=== PATIENT | male | born 1985 | race American Indian/Alaskan Native ===

== ENCOUNTER 2016-08-18 17:46 | Emergency (ER) | payer SELFPAY | END 2016-08-18 19:50 | disposition left against medical advice (07) | LOC: ED 17:46 | DX: R53.1 Weakness (principal); Z53.21 Procedure and treatment not carried out due to patient leaving prior to being seen by health care provider ==

== ENCOUNTER 2016-08-31 09:53 | Emergency (ER) | payer SELFPAY ==
[2016-08-31 10:28] LABS: Hemoglobin 15.8 gm/dl (11.8-15.2); Mean Corpuscular HGB Conc 34 % (32-34); Mean Corpuscular Hemoglobin 28 pg (28-32); Mean Corpuscular Volume 82 fl (84-94); Platelet Count 170 K/mm3 (140-440); Red Blood Count 5.75 M/mm3 (3.65-5.03); Red Cell Distribution Width 14.9 % (13.2-15.2); White Blood Count 2.4 K/mm3 (4.5-11.0)
[2016-08-31 10:47] LABS: Alanine Aminotransferase 173 units/L (7-56); Albumin 4.7 g/dL (3.9-5); Albumin/Globulin Ratio 1.6 %; Alkaline Phosphatase 107 units/L (35-129); Anion Gap 18 mmol/L; Blood Urea Nitrogen 6 mg/dL (9-20); Calcium 9.3 mg/dL (8.4-10.2); Carbon Dioxide 29 mmol/L (22-30); Chloride 95.4 mmol/L (98-107); Glucose 104 mg/dL (75-100); Potassium 3.6 mmol/L (3.6-5.0); Sodium 139 mmol/L (137-145); Total Protein 7.7 g/dL (6.3-8.2)
[2016-08-31 11:35] LABS: Blastocytes % (Manual) 0 %; Large Platelets Few
[2016-08-31 11:36] LABS: Diff Status Complete; RBC Morphology Normal
--- NOTE | 2016-08-31 18:49 | Emergency Department Report ---
Chief Complaint: Recheck/Abnormal Lab/Rx Stated Complaint: THYROID Time Seen by Provider: 08/31/16 18:45 - HPI History of Present Illness: PT c/o a year of fatigue and LUQ pain. PT states he was seen at urgent care recently and sent to ED for abnormal labs. - ROS Review of Systems: + luq abd pain, intermittent + fatigue + rash + itching - sore throat - Exam Vital Signs: Vital Signs 08/31/16 09:56 Temperature 98.2 F Pulse Rate 95 H Respiratory 18 Rate Blood Pressure 153/111 O2 Sat by Pulse 100 Oximetry Physical Exam: thin male, non toxic. pt with soft abd. pt c/o LUQ pain, but no pain with palpation PT has eczema like rash to L AC MSE screening note: Focused history and physical exam performed. Due to findings the following was ordered: addition labs and gallbladder us ordered. pt encouraged to stay in ed. ED Medical Decision Making - Lab Data Result diagrams: 08/31/16 10:10 08/31/16 10:10 ED Disposition for MSE Condition: Stable Referrals: PRIMARY CARE [Primary Care Provider] - 3-5 Days
[2016-08-31 19:38] LABS: Amylase 502 units/L (27-131); Creatine Kinase 293 units/L (55-170); Lipase 21 units/L (13-60)
[2016-08-31 20:28] LABS: Bilirubin,Urine NEG (Negative); Blood,Urine NEG (Negative); Ketones,Urine NEG (Negative); Leukocyte Esterase,Urine NEG (Negative); Mucus,Urine FEW /HPF; Nitrite,Urine NEG (Negative); Protein,Urine <15 mg/dL mg/dL (Negative); WBC,Urine < 1.0 /HPF (0.0-6.0)
--- NOTE | 2016-08-31 20:29 | Ultrasound Report ---
FINAL REPORT PROCEDURE: US ABDOMEN LIMITED TECHNIQUE: Real-time sonography in multiple planes of the gallbladder fossa and CBD with imaging of the adjacent liver, pancreas, and right kidney was performed with image documentation. CPT 24567 HISTORY: pain, elevated lfts COMPARISON: No prior studies are available for comparison. FINDINGS: Liver: Diffuse increased echogenicity may be related to fatty infiltration. Gallbladder: Fluid filled. No gallstones, wall thickening, pericholecystic fluid, or sonographic Hensley's sign . Intrahepatic bile ducts: Normal . Extrahepatic bile ducts: Common bile duct measures 4 millimeters in caliber. Pancreas: Not fully visualized. Right kidney: Normal echotexture. No focal renal mass, calculus, or hydronephrosis. Other: No free fluid. IMPRESSION: Fatty infiltration of the liver. No sonographic evidence of cholelithiasis or acute cholecystitis
--- NOTE | 2016-08-31 21:30 | Emergency Department Report ---
ED Recheck HPI - General Chief Complaint: Recheck/Abnormal Lab/Rx Stated Complaint: THYROID Time Seen by Provider: 08/31/16 18:45 Source: patient Mode of arrival: Ambulatory Limitations: No Limitations - History of Present Illness Initial Comments: 31M PMH none sent by PMD today for "cancer workup" as per PMD note and results of hypokalemia (3.1) and mildly elevated AST/ALT liver function panel (in 200s) . Pt states he was advised by his PMD to present to the ED for evaluation, presumptively because of these abnormalities. Unclear why triage note states "thyroid" complaint. Pt is AAAOx3, accompanied by mother and father. He states that for approximately 1 year he has noticed weight loss and diffuse body aches. pt states he sometimes experiences abdominal pains. Also states that over the last year he has become progressively more fatigued. Denies any current chest pain, shortness of breath, nausea, vomiting, states he is moving his bowels and urinating on daily basis without difficulty. States he has had weight loss of about 20-30 lbs over the course of 1 year. Complaint: abnormal lab Onset/Timin -: year(s) Returns Today for: CBOAL Description of Abnormal Result: K+: 3.1 on 08/27/13 AST/ALT 200s 08/27/16 plts 110 08/27/16 Symptoms Since Prior Visit: no new symptoms Context: called for abnorm lab res - Related Data Previous Rx's Medication Instructions Recorded Last Taken Type amLODIPine [Norvasc] 5 mg PO DAILY #30 tab 08/31/16 Unknown Rx Allergies Allergy/AdvReac Type Severity Reaction Status Date / Time No Known Allergies Allergy Verified 08/31/16 10:08 ED Review of Systems ROS: Stated complaint: THYROID Other details as noted in HPI Constitutional: malaise (1 year) Eyes: denies: eye pain, eye discharge, vision change ENT: denies: ear pain, throat pain Respiratory: denies: cough, shortness of breath, wheezing Cardiovascular: denies: chest pain, palpitations Endocrine: no symptoms reported, unexplained weight loss (weight loss x 1year approximately 20 lbs) Gastrointestinal: other. denies: abdominal pain, nausea, diarrhea Genitourinary: denies: urgency, dysuria Musculoskeletal: denies: back pain, joint swelling, arthralgia Skin: denies: rash, lesions Neurological: denies: headache, weakness, paresthesias Psychiatric: denies: anxiety, depression Hematological/Lymphatic: denies: easy bleeding, easy bruising ED Past Medical Hx - Past Medical History Hx Asthma: Yes - Surgical History Additional Surgical History: scoliosis repair - Social History Smoking Status: Current Every Day Smoker Substance Use Type: Alcohol - Medications Home Medications: Home Medications Medication Instructions Recorded Confirmed Last Taken Type amLODIPine [Norvasc] 5 mg PO DAILY #30 tab 08/31/16 Unknown Rx ED Physical Exam - General Limitations: No Limitations General appearance: alert, in no apparent distress - Head Head exam: Present: atraumatic, normocephalic - Eye Eye exam: Present: normal appearance, PERRL, EOMI - ENT ENT exam: Present: mucous membranes moist - Neck Neck exam: Present: normal inspection - Respiratory Respiratory exam: Present: normal lung sounds bilaterally. Absent: respiratory distress - Cardiovascular Cardiovascular Exam: Present: regular rate, normal rhythm. Absent: systolic murmur, diastolic murmur, rubs, gallop - GI/Abdominal GI/Abdominal exam: Present: soft, normal bowel sounds - Rectal Rectal exam: Present: deferred - Extremities Exam Extremities exam: Present: normal inspection - Back Exam Back exam: Present: normal inspection - Neurological Exam Neurological exam: Present: alert, oriented X3, CN II-XII intact, normal gait - Psychiatric Psychiatric exam: Present: normal affect, normal mood - Skin Skin exam: Present: warm, dry, intact, normal color. Absent: rash ED Course Vital Signs 08/31/16 08/31/16 08/31/16 09:56 22:33 22:39 Temperature 98.2 F Pulse Rate 95 H 90 90 Respiratory 18 18 Rate Blood Pressure 153/111 160/120 Blood Pressure 160/120 [Right] O2 Sat by Pulse 100 99 Oximetry ED Recheck MDM - Medical Decision Making A/P: Abnormal labs, unexplained weight loss, hypomagnesemia 1- I discussed case and pt's labs with Dr. Wylie 2-I advised patient and patient's family that that is extremely important for them to follow up with her top ironer/oncologist for potential malignancy workup. I also advised patient that he should have testing for hepatitis and HIV in an outpatient setting 3- pt given 1 dose of IV magnesium 2g before discharge. As per Dr. Inessa no PO repletion as this may be harmful to pt. I read through patient's lab work from outpatient setting TSH was normal. 4- pt signed out AMA as he stated he needed to leave before we could obtain a normal blood pressure reading. pts BP was 183/110- 190/113. I advised pt that with such a persistently elevated blood pressure which we checked several times that he is at risk for heart attack and stroke. Pt stated he understood these risks but decided he wanted to leave the ED before we could normalize his blood pressure. I prescribed him low-dose amlodipine and advised him to follow- up with a primary doctor and top ironer oncologist as soon as possible or to return to the ED for further assessment and management. Patient stated he understood this Critical care attestation.: If time is entered above; I have spent that time in minutes in the direct care of this critically ill patient, excluding procedure time. ED Disposition Clinical Impression: Abnormal blood chemistry, Abnormal liver function test, Hypomagnesemia Disposition: LEFT AGAINST MEDICAL ADVICE Is pt being admited?: No Does the pt Need Aspirin: No Condition: Stable Instructions: Hypokalemia (ED), Hypertension (ED), Hypomagnesemia (ED), Ultrasound (GEN) Prescriptions: amLODIPine [Norvasc] 5 mg PO DAILY #30 tab Referrals: HARSHA GUPTA MD [Staff Physician] - 3-5 Days JOHN DSOUZA MD [Staff Physician] - 3-5 Days [facility] [Provider Group] - 3-5 Days Forms: AMA Form, Accompanied Note, Work/School Release Form(ED) Time of Disposition: 21:27
[2016-08-31] MEDS ORDERED: MAGNESIUM SULFATE 2GM/50ML 2 GM/50 ML BAG IV ONE (21:49)
[2016-08-31] MEDS ORDERED: NORVASC PO ONE (22:32)
[2016-08-31 22:34] VITALS: BP 160/120
== END 2016-08-31 22:30 | disposition left against medical advice (07) ==
LOC: ED 09:53
DX: E83.42 Hypomagnesemia (principal); R94.5 Abnormal results of liver function studies; R79.89 Other specified abnormal findings of blood chemistry; J45.909 Unspecified asthma, uncomplicated; F17.200 Nicotine dependence, unspecified, uncomplicated
CPT/HCPCS: 36415; 76705; 80053; 81001; 82150; 82550; 83690; 83735; 85007; 85025; 87086; 93005; 93010; 96365; 99284; J3475

== ENCOUNTER 2018-08-26 15:00 | Emergency (ER) | payer SELFPAY ==
[2018-08-26 15:17] VITALS: BP 141/91
--- NOTE | 2018-08-26 15:18 | Emergency Department Report ---
Chief Complaint: Shoulder Injury Stated Complaint: SHOULDER/NECK PAIN Time Seen by Provider: 08/26/18 15:16 - HPI History of Present Illness: pt presents to the ED with c/o left shoulder pain and left neck pain that began a couple of months ago has a hx of a back surgery from C-spine to T-spine no fall, injury, or trauma no PMHx MSE screening note: Focused history and physical exam the following was ordered: xr c-spine ED Disposition for MSE Condition: Stable
--- NOTE | 2018-08-26 16:48 | XRay Report ---
PROCEDURE: XR SPINE CERVICAL 2-3V TECHNIQUE: Cervical spine, 3 views HISTORY: left sided neck pain, hx of scoliosis surgery COMPARISONS: None FINDINGS: The vertebral body heights and alignment are maintained. Limited evaluation of the odontoid process. The prevertebral soft tissues are within normal limits in thickness. Pedicular rods are present in th e visualized portion of the upper thoracic spine. IMPRESSION: No acute osseous abnormality is identified. This document is electronically signed by Abby Haro MD., Aug 26 2018 04:46:51 PM ET
[2018-08-26] MEDS ORDERED: IBUPROFEN PO ONE (17:20)
--- NOTE | 2018-08-26 17:21 | Emergency Department Report ---
Upper Extremity - HPI Chief Complaint: Shoulder Injury Stated Complaint: SHOULDER/NECK PAIN Time Seen by Provider: 08/26/18 15:16 Upper Extremity: Left Shoulder Occurred When: >5 Days (couple of months) Mechanism: Other (chronic) Severity: severe Symptoms: No Pain with Movement, No Deformity, No Limited Range of Movement, No Numbness, No Weakness, No Swelling, No Bruising/Ecchymosis, No Laceration or Abrasion Other History: 33-year-old -French male presents to the ER for complaint of left shoulder pain that's been going on for months. Patient reports he had surgery to correct a scoliosis at the age of 17. Patient denies any trauma. Patient reports he was seen at the clinic last week and was given a prescription for meloxicam. Patient states that does not help with his pain much. Patient appears to have a history of eczema and reports that he is out of his eczema cream. He reports he's been on triamcinolone cream. ED Review of Systems ROS: Stated complaint: SHOULDER/NECK PAIN Other details as noted in HPI Comment: All other systems reviewed and negative Musculoskeletal: arthralgia (left shoulder) Skin: rash ED Past Medical Hx - Past Medical History Hx Asthma: Yes - Surgical History Additional Surgical History: scoliosis repair - Social History Smoking Status: Never Smoker Substance Use Type: Alcohol - Medications Home Medications: Home Medications Medication Instructions Recorded Confirmed Last Taken Type amLODIPine [Norvasc] 5 mg PO DAILY #30 tab 08/31/16 Unknown Rx Ibuprofen [Motrin 800 MG tab] 800 mg PO Q8HR PRN #30 tablet 08/26/18 Unknown Rx Triamcinolone Acetonide 1 applic TP BID #80 oint...g. 08/26/18 Unknown Rx Upper Extremity Exam - Exam General: Vital signs noted. No distress. Alert and acting appropriately. Dry scaly skin on extensors and incisors. Head and Torso: No HEENT Abnormality, No Neck Tenderness, No Chest/Lungs Abnor mality, No Abdominal Tenderness, No Back Tenderness Shoulder Exam: Yes Normal Range of Motion in Shoulder, No Shoulder Tenderness, No Clavicle Tenderness, No Shoulder Deformity, No AC Joint Tenderness Arm Exam: No Arm/Humerus Tenderness, No Arm Deformity Elbow: No Elbow Tenderness, No Normal Range of Motion in Elbow, No Elbow Deformity Forearm: No Forearm Tenderness, No Forearm Deformity, No Pain with Pronation, No Pain with Supination Wrist: Yes Normal ROM in Wrist, No Wrist Tenderness, No Wrist Deformity, No Snuffbox Tenderness, No Pain with Axial Thumb Compression Hand: Yes Normal ROM in Digit(s), No Hand Tenderness, No Hand Deformity, No Digit Tenderness, No Digit(s) Deformity, No Tendon Dysfunction CMS Exam: No Broken Skin, No Normal Distal Pulses, No Normal Capillary Refill, No Normal Distal Sensation ED Course Vital Signs 08/26/18 15:16 Temperature 99.2 F Pulse Rate 103 H Respiratory 18 Rate Blood Pressure 141/91 [Right] O2 Sat by Pulse 100 Oximetry ED Medical Decision Making - Radiology Data Radiology results: report reviewed Patient: LAKSHMI GALLARDO MR#: [id number] : 1985 Acct:[id number] Age/Sex: 33 / M ADM Date: 08/26/18 Loc: ED Attending Dr: Ordering Physician: CANDIDA RENAE Date of Service: 08/26/18 Procedure(s): XR spine cervical 2-3V Accession Number(s): [id number] cc: CANDIDA RENAE Fluoro Time In Minutes: PROCEDURE: XR SPINE CERVICAL 2-3V TECHNIQUE: Cervical spine, 3 views HISTORY: left sided neck pain, hx of scoliosis surgery COMPARISONS: None FINDINGS: The vertebral body heights and alignment are maintained. Limited evaluation of the odontoid process. The prevertebral soft tissues are within normal limits in thickness. Pedicular rods are present in the visualized portion of the upper thoracic spine. IMPRESSION: No acute osseous abnormality is identified. This document is electronically signed by Abby Haro MD., Aug 26 2018 04:46:51 PM ET Transcribed By: [facility] Dictated By: ABBY HARO M.D. Electronically Authenticated By: ABBY HARO M.D. Signed Date/Time: 08/26/18 1648 DD/ 1630 TD/TT: 08/26/18 1630 - Medical Decision Making 33-year-old male comes in for chronic shoulder pain. Patient has been taking meloxicam since last week and reports the pain is not improved. Patient was offered a Toradol injection and he declines I discussed the patient and other options ibuprofen. I also discussed the patient that he cannot take ibuprofen and meloxicam at the same time. Patient verbalized understanding. Patient also be treated with a prescription for triamcinolone cream for his eczema. I discussed the patient is a follow-up with the primary care provider in orthopedic provider. Critical care attestation.: If time is entered above; I have spent that time in minutes in the direct care o f this critically ill patient, excluding procedure time. ED Disposition Clinical Impression: Chronic left shoulder pain, Chronic high back pain, Eczema of both upper extremities Disposition: - TO HOME OR SELFCARE Is pt being admited?: No Does the pt Need Aspirin: No Condition: Stable Instructions: Chronic Back Pain (ED), Arthralgia (ED), Eczema (ED) Additional Instructions: Please take pain medication as needed. Do not take meloxicam and ibuprofen together. Please increase your water intake while taking ibuprofen. Follow up with the primary care provider and orthopedic provider. Prescriptions: Ibuprofen [Motrin 800 MG tab] 800 mg PO Q8HR PRN #30 tablet PRN Reason: Pain , Severe (7-10) Triamcinolone Acetonide 1 applic TP BID #80 oint...g. [facility]: [facility] SOFIA [Primary Care Provider] - 3-5 Days DANTE QUIROZ MD [Staff Physician] - 3-5 Days RIO HAHN MD [Staff Physician] - 3-5 Days
== END 2018-08-26 17:34 | disposition home or self-care (01) ==
LOC: ED 15:00
DX: G89.29 Other chronic pain (principal); M25.512 Pain in left shoulder; M54.9 Dorsalgia, unspecified; L30.9 Dermatitis, unspecified; J45.909 Unspecified asthma, uncomplicated
CPT/HCPCS: 72040

== ENCOUNTER 2020-01-31 09:46 | Outpatient (CLI) | payer OTHER ==
--- NOTE | 2020-01-31 10:39 | XRay Report ---
CERVICAL SPINE 5 VIEWS INDICATION / CLINICAL INFORMATION: CHRONIC SHOULDER AND NECK PAIN. COMPARISON: 08/26/2018 FINDINGS: Surgical hardware is again seen in the thoracic spine posteriorly. Mild narrowing of the C7-T1 disc s pace. No other significant skeletal abnormality seen in the cervical spine. Alignment is normal. Signer Name: Ezequiel Olmedo MD FACR Signed: 01/31/2020 10:34 AM Workstation Name: [id number]
--- NOTE | 2020-01-31 10:39 | XRay Report ---
LEFT SHOULDER 3 VIEWS INDICATION / CLINICAL INFORMATION: MAIN. COMPARISON: None available. FINDINGS: Widening of the space between the distal clavicle and the acromium. No other significant skeletal abn ormality Signer Name: Ezequiel Olmedo MD FACR Signed: 01/31/2020 10:35 AM Workstation Name: [id number]
== END 2020-01-31 09:47 | disposition home or self-care (01) ==
LOC: XRAY 09:46
PROVIDERS: ATTEND Internal Medicine
DX: M48.03 Spinal stenosis, cervicothoracic region (principal); M25.512 Pain in left shoulder
CPT/HCPCS: 72040

== ENCOUNTER 2020-07-15 16:28 | Emergency (ER) | payer SELFPAY ==
[2020-07-15 17:38] VITALS: BP 175/96
--- NOTE | 2020-07-15 17:46 | Emergency Department Report ---
Chief Complaint: Pain General Stated Complaint: BODY PAIN - HPI History of Present Illness: 35-year-old male patient presents to emergency department with complaints of chronic neck, upper back, and lower extremity pain starting approximately 4 years ago. Patient states the pain has gradually worsened over the course of the last year. He has not seen an outpatient provider for this issue. There has been no recent fall, trauma, or injury. Symptoms are not any different today than they have been over the last few years. When asked what prompted him to come to the emergency department today specifically, patient states, "it's interfering with my work." He has been taking muscle relaxers with limited relief. Denies fever, chills, rash, paresthesias, numbness, bladder/bowel incontinence, difficulty breathing. Denies other complaints at this time. - ROS Review of Systems: GENERAL: Negative for fever. CARDIOVASCULAR: Negative for chest pain. PULMONARY: Negative for shortness of breath. GASTROINTESTINAL: Negative for abdominal pain. MUSCULOSKELETAL: Positive for neck and back pain. Positive for bilateral upper extremity pain. NEUROLOGICAL: Negative for headache. INTEGUMENTARY: Negative for rash. - Exam Vital Signs: Vital Signs 07/15/20 17:35 Temperature 98.1 F Pulse Rate 96 H Respiratory 17 Rate Blood Pressure 175/96 O2 Sat by Pulse 96 Oximetry Physical Exam: General: Awake, appropriately interactive, no acute distress. Eyes: PERRL. EOMI. Neck: Diffuse paraspinal cervical tenderness without step-offs. Supple. Full range of motion intact. Cardiovascular: Normal peripheral perfusion. Pulmonary: No respiratory distress. Patient is speaking normally without use of accessory muscles. Skin: No apparent rashes or lesions. Neurological: No facial asymmetry. Speech is clear. Follows commands. Patient is alert and oriented. GCS 15. Strength and sensation intact throughout. Musculoskeletal: Moves all four extremities spontaneously with normal range of motion. No point tenderness. Ambulatory without assistance. Distal neurovascular and motor/sensory function intact throughout. Psych: Cooperative. Appropriate mood and affect. MSE screening note: Focused history and physical exam performed. Due to findings the following was ordered: ED Medical Decision Making - Medical Decision Making Patient presents to emergency department for evaluation of chronic pain, ongoing for several years, gradually worsening over the course of the last 12 months. There was no new fall, trauma, or injury. He is here today because the pain has begun to interfere with his ability to work. It has been explained to the patient that identifying an underlying cause for his chronic pain is not an emergent indication for diagnostic work-up. His vital signs are stable. He is ambulatory with out assistance. He is not exhibiting signs/symptoms of systemic illness. Patient will be discharged home with a short course of appropriate analgesics and referred to multiple specialists for definitive outpatient management of his ongoing pain. Patient expressed understanding is agreeable to plan of care. Strict return precautions provided. BILLING/CODING: Please note this patient encounter does not represent a certified medical emergency. ED Disposition for MSE Clinical Impression: Chronic pain Qualifiers: Chronic pain type: other chronic pain Qualified Code(s): G89.29 - Other chronic pain Disposition: MED SCREENING EXAM-LEFT Is pt being admited?: No Does the pt Need Aspirin: No Condition: Stable Instructions: Pain Without a Known Cause Additional Instructions: Take Tylenol every 4 hours as needed for pain. Take Naprosyn twice daily with food as needed for pain. Apply Lidoderm patches to affected areas as needed for pain. Continue muscle relaxers as previously prescribed. Apply heat to affected areas as needed for pain. Follow-up with primary care provider and/or orthopedics and/or neurosurgery within 1 week. Call tomorrow to schedule an appointment. Return to the emergency department immediately for new or worsening symptoms. Specifically, return to the emergency department immediately for fever, worsening pain, mental status changes, inability to walk, loss of sensation, inability to use the bathroom, or any other concerns. Prescriptions: Lidocaine [Lidoderm] 1 each TP BID #20 adh..patch Naproxen 500 mg PO BID #20 tablet Referrals: JOSE MARTELL MD [Staff Physician] - 3-5 Days DANTE QUIROZ MD [Staff Physician] - 3-5 Days [facility] [Provider Group] - 3-5 Days Forms: Work/School Release Form(ED) Time of Disposition: 17:46
== END 2020-07-15 18:23 | disposition left against medical advice (07) ==
LOC: ED 16:28
DX: R52 Pain, unspecified (principal); Z53.21 Procedure and treatment not carried out due to patient leaving prior to being seen by health care provider

== ENCOUNTER 2020-07-15 19:39 | Emergency (ER) | payer SELFPAY ==
[2020-07-15] MEDS ORDERED: LORazepam 2 MG/ML VIAL IV PRN ×3 (19:51)
[2020-07-15] MEDS ORDERED: TETANUS,DIPH,PERTUSS(ACELL) VACCINE 0.5 ML SYRINGE IM ONE (19:51)
--- NOTE | 2020-07-15 19:52 | Emergency Department Report ---
ED General Adult HPI - General Chief complaint: Seizure Stated complaint: i dont know what happened PUI?: No Time Seen by Provider: 07/15/20 19:43 Source: patient, EMS ( EMS documentation not available at time of chart di ctation ), RN notes reviewed, old records reviewed Mode of arrival: Stretcher Limitations: Other (Patient does not recall what happened) - History of Present Illness Initial comments: The patient was evaluated in the emergency department for symptoms described in the history of present illness. He/she was evaluated in the context of the global COVID-19 pandemic, which necessitated consideration that the patient might be at risk for infection with the virus that causes COVID-19. Institutional protocols and algorithms that pertain to the evaluation of patients at risk for COVID-19 are in a state of rapid change based on information released by regulatory bodies including the CDC and federal and state organizations. These policies and algorithms were followed during the patient's care in the emergency department. Please note that these policies, procedures and recommendations changed on a rapid basis. The patient is a 35-year-old gentleman. He is not known to myself previously. He is brought to the hospital today by EMS with a possible seizure. The patient himself is confused. He does not recall what happened. He is awake and follows commands. He indicates that he has a headache and right-sided ear pain. He indicates no loss of vision, no loss of taste or smell. He indicates he recreationally consumes alcohol, but "not that much." Nursing team informed me that the patient may have had a seizure in an outpatient supermarket, and may have hit his head, it is not known who contacted emergency medical services. Primary survey Airway: Patent and intact Breath sounds: Clear to auscultation bilaterally Circulation: 2+ pulses noted in the bilateral upper and lower extremities. Disability: Eyes open spontaneously, follows commands, alert to name, GCS 14 Secondary survey: Abrasions noted to hands. Bleeding noted from right sided external auditory canal. Otherwise, no significant 1 to penetrating injuries are appreciated. Patient confused, has difficulty describing qualitative nature of symptoms, exacerbating factors, relieving factors, or aggravating factors. -: This evening Location: head Quality: other Consistency: other Improves with: other Worsens with: other Associated Symptoms: other - Related Data Previous Rx's Medication Instructions Recorded Last Taken Type amLODIPine 5 mg PO DAILY #30 tab 08/31/16 Unknown Rx Ibuprofen [Motrin 800 MG tab] 800 mg PO Q8HR PRN #30 tablet 08/26/18 Unknown Rx Triamcinolone Acetonide 1 applic TP BID #80 oint...g. 08/26/18 Unknown Rx Lidocaine [Lidoderm] 1 each TP BID #20 adh..patch 07/15/20 Unknown Rx Naproxen 500 mg PO BID #20 tablet 07/15/20 Unknown Rx Allergies Allergy/AdvReac Type Severity Reaction Status Date / Time No Known Allergies Allergy Verified 08/26/18 15:01 ED Review of Systems ROS: Stated complaint: POSS SZ Other details as noted in HPI Comment: Unobtainable due to pts medical conditions ED Past Medical Hx - Past Medical History Hx Asthma: Yes - Surgical History Additional Surgical History: scoliosis repair - Social History Smoking Status: Current Every Day Smoker Substance Use Type: Alcohol - Medications Home Medications: Home Medications Medication Instructions Recorded Confirmed Last Taken Type amLODIPine 5 mg PO DAILY #30 tab 08/31/16 Unknown Rx Ibuprofen [Motrin 800 MG tab] 800 mg PO Q8HR PRN #30 tablet 08/26/18 Unknown Rx Triamcinolone Acetonide 1 applic TP BID #80 oint...g. 08/26/18 Unknown Rx Lidocaine [Lidoderm] 1 each TP BID #20 adh..patch 07/15/20 Unknown Rx Naproxen 500 mg PO BID #20 tablet 07/15/20 Unknown Rx ED Physical Exam - General Limitations: Other (Patient confused) General appearance: anxious - Head Head exam: Present: atraumatic, normocephalic - Eye Eye exam: Present: normal appearance, PERRL, EOMI - ENT ENT exam: Present: normal exam, normal orophraynx, mucous membranes moist, TM's normal bilaterally. Absent: normal external ear exam (Bleeding noted from right-sided external auditory canal. No hemotympanum noted. Left external auditory canal within normal limits. N there is no hemotympanum noted) - Neck Neck exam: Present: normal inspection, full ROM. Absent: tenderness, meningismus - Respiratory Respiratory exam: Present: normal lung sounds bilaterally. Absent: respiratory distress, wheezes, rales, rhonchi, stridor, chest wall tenderness - Cardiovascular Cardiovascular Exam: Present: normal rhythm, tachycardia, normal heart sounds. Absent: bradycardia, irregular rhythm, systolic murmur, diastolic murmur, rubs, gallop - GI/Abdominal GI/Abdominal exam: Present: soft. Absent: distended, tenderness, guarding, rebound, rigid, pulsatile mass - Rectal Rectal exam: Present: deferred - Extremities Exam Extremities exam: Present: normal inspection, full ROM, other (2+ pulses noted in the bilateral upper and lower extremities. There is no palpable cord. negative Homans sign. Muscular compartments are soft. The pelvis is stable.). Absent: pedal edema, calf tenderness - Back Exam Back exam: Present: normal inspection, full ROM. Absent: tenderness, CVA tenderness (R), CVA tenderness (L), paraspinal tenderness, vertebral tenderness - Neurological Exam Neurological exam: Present: alert, other (No facial droop. Tongue midline. Extraocular movements intact bilaterally. Facial sensation intact to light touch in V1, V2, V3 distribution bilaterally. 5 and a 5 strength in 4 extremities. Sensation intact to light touch in 4 extremities.) - Psychiatric Psychiatric exam: Present: anxious - Skin Skin exam: Present: warm, abrasion, ecchymosis. Absent: rash ED Course Vital Signs 07/15/20 07/15/20 07/15/20 19:55 20:00 20:01 Temperature 98 F Pulse Rate 107 H 104 H 105 H Respiratory 18 18 18 Rate Blood Pressure 123/88 123/88 123/88 O2 Sat by Pulse 98 98 98 Oximetry 07/15/20 07/15/20 07/15/20 20:07 20:16 20:30 Temperature Pulse Rate 102 H 99 H Respiratory 18 14 9 L Rate Blood Pressure 126/83 133/75 O2 Sat by Pulse 98 97 Oximetry 07/15/20 07/15/20 07/15/20 20:52 21:00 21:16 Temperature Pulse Rate 111 H 103 H 104 H Respiratory 15 12 15 Rate Blood Pressure 133/75 123/88 146/98 O2 Sat by Pulse 99 98 Oximetry 07/15/20 07/15/20 21:30 21:46 Temperature Pulse Rate 97 H 98 H Respiratory 19 Rate Blood Pressure 146/98 128/100 O2 Sat by Pulse 99 99 Oximetry ED Medical Decision Making - Lab Data Result diagrams: 07/15/20 20:00 07/15/20 20:00 Vital Signs 07/15/20 20:01 Temperature 98 F Pulse Rate 105 H Respiratory 18 Rate Blood Pressure 123/88 O2 Sat by Pulse 98 Oximetry Lab Results 07/15/20 07/15/20 07/15/20 Range/Units 20:00 20:00 20:00 Hgb 14.7 (11.8-15.2) gm/dl Hct 43.5 (35.5-45.6) % Plt Count 140 (140-440) K/mm3 PT 14.4 (12.2-14.9) Sec. INR 1.14 H (0.87-1.13) Sodium 131 L (137-145) mmol/L Potassium 3.3 L (3.6-5.0) mmol/L Chloride 88.2 L (98-107) mmol/L Carbon Dioxide 17 L (22-30) mmol/L Anion Gap 29 mmol/L BUN 10 (9-20) mg/dL Creatinine 0.8 (0.8-1.3) mg/dL Estimated GFR > 60 ml/min BUN/Creatinine Ratio 13 % Glucose 171 H (75-100) mg/dL Calcium 9.7 (8.4-10.2) mg/dL Phosphorus (2.5-4.5) mg/dL Magnesium 1.60 L (1.7-2.3) mg/dL Total Bilirubin 1.30 H (0.1-1.2) mg/dL AST 509 H (5-40) units/L ALT 448 H (7-56) units/L Alkaline Phosphatase 104 (35-129) units/L Total Creatine Kinase 424 H (55-170) units/L Troponin T < 0.010 (0.00-0.029) ng/mL Total Protein 7.7 (6.3-8.2) g/dL Albumin 4.8 (3.9-5) g/dL Albumin/Globulin Ratio 1.7 % Acetaminophen (10.0-30.0) ug/mL Plasma/Serum Alcohol (0-0.07) % 07/15/20 07/15/20 07/15/20 Range/Units 20:00 20:00 20:00 Hgb (11.8-15.2) gm/dl Hct (35.5-45.6) % Plt Count (140-440) K/mm3 PT (12.2-14.9) Sec. INR (0.87-1.13) Sodium (137-145) mmol/L Potassium (3.6-5.0) mmol/L Chloride (98-107) mmol/L Carbon Dioxide (22-30) mmol/L Anion Gap mmol/L BUN (9-20) mg/dL Creatinine (0.8-1.3) mg/dL Estimated GFR ml/min BUN/Creatinine Ratio % Glucose (75-100) mg/dL Calcium (8.4-10.2) mg/dL Phosphorus 3.10 (2.5-4.5) mg/dL Magnesium (1.7-2.3) mg/dL Total Bilirubin (0.1-1.2) mg/dL AST (5-40) units/L ALT (7-56) units/L Alkaline Phosphatase (35-129) units/L Total Creatine Kinase (55-170) units/L Troponin T (0.00-0.029) ng/mL Total Protein (6.3-8.2) g/dL Albumin (3.9-5) g/dL Albumin/Globulin Ratio % Acetaminophen 5.0 L (10.0-30.0) ug/mL Plasma/Serum Alcohol < 0.01 (0-0.07) % - EKG Data -: EKG Interpreted by [place] EKG shows normal: sinus rhythm Rate: tachycardia - EKG Data 07/15/20 21:31 EKG interpreted at 21: 17 Sinus rhythm, tachycardia, 102 bpm. High left ventricular voltage. QTC is prolonged. Nonspecific T wave abnormalities. Motion artifact. This EKG is abn ormal. This EKG is not a STEMI. - Radiology Data Radiology results: report reviewed, image reviewed [facility] [address] [place] [address] XRay Report Signed Patient: LAKSHMI GALLARDO MR#: [id number] : 1985 Acct:[id number] Age/Sex: 35 / M ADM Date: 07/15/20 Loc: ED Attending Dr: Ordering Physician: KAVYA RUTH MD Date of Service: 07/15/20 Procedure(s): XR chest 1V ap Accession Number(s): [id number] cc: KAVYA RUTH MD Fluoro Time In Minutes: CHEST 1 VIEW 07/15/2020 7:07 PM INDICATION / CLINICAL INFORMATION: sz, convulsion. COMPARISON: 09/19/2010 FINDINGS: SUPPORT DEVICES: None. HEART / MEDIASTINUM: No significant abnormality. LUNGS / PLEURA: No significant pulmonary or pleural abnormality. No pneumothorax. ADDITIONAL FINDINGS: Spinal fusion hardware IMPRESSION: 1. No acute findings. Signer Name: Anjum Evans MD Signed: 07/15/2020 8:13 PM Workstation Name: [email or web address] Transcribed By: TL Dictated By: Anjum Evans MD Electronically Authenticated By: Anjum Evans MD Signed Date/Time: 07/15/202012 DD/ 11 CT HEAD WITHOUT CONTRAST INDICATION / CLINICAL INFORMATION: closed head injury, seizure. TECHNIQUE: All CT scans at this location are performed using CT dose reduction for ALARA by means of automated exposure control. COMPARISON: None available. FINDINGS: HEMORRHAGE: Several extra-axial hematomas are identified. These are present along the inner table of the right temporal squamosa, along the inner table of the frontal bone to the left of the midline and along the left side of the falx. The falcine and left frontal extra-axial hematomas or subdural in location. Because of the presence of a fracture involving the right temporal bone cannot exclude possibility that the right temporal extra-axial collection is epidural in location. Close imaging follow-up is advised. Additionally noted is evidence of subarachnoid blood in sulci of the inferior aspect of the left frontal lobe and lateral convexity of the right temporal lobe. There is evidence of a small hemorrhagic contusion along the lateral aspect of the left temporal lobe. VENTRICULAR SYSTEM: The third and lateral ventricles are of normal size and configuration. CEREBRAL PARENCHYMA: No areas of abnormal brain parenchymal attenuation are identified. There is no indication of recent infarction. MIDLINE SHIFT OR HERNIATION: There is no indication of midline shift. No evidence of transfalcine or uncal herniation is observed. CEREBELLUM / BRAINSTEM: Brainstem and cerebellum have an unremarkable appearance. MIDLINE STRUCTURES:No abnormalities of the pituitary gland or pineal region are identified. INTRACRANIAL VESSELS:No abnormalities are identified on this noncontrast head CT. ORBITS: visualized portions of the orbits have an unremarkable appearance. SOFT TISSUES of HEAD: No significant abnormality. CALVARIUM: There is a longitudinal fracture through the right temporal bone associated with opacification of multiple right-sided mastoid air cells and the right middle ear cavity. PARANASAL SINUSES / MASTOID AIR CELLS: An air-fluid level is present within the right sphenoid sinus. This could be related to trauma but I do not identified definite fracture through the sphenoid bone. IMPRESSION: 1. Right temporal extra-axial hematoma, subdural versus epidural. 9 mm in maximum thickness. 2. Left frontal subdural hematoma. 7 mm in maximum thickness. 3. Left parafalcine subdural hematoma. 4 mm maximum thickness. 4. Traumatic subarachnoid hemorrhage as described above. 5. Findings suggest hemorrhagic contusion left temporal lobe 6. Longitudinal fracture right temporal bone. CRITICAL RESULT: Time of Discovery (FISHING TOOL TECHNICIAN OIL WELL/CDT): 1949 Time of Communication (FISHING TOOL TECHNICIAN OIL WELL/CDT): 1952 Licensed Practitioner Receiving Report: Dr. Ruth Read-Back Performed: Not applicable. Signer Name: Donald Obrien MD Signed: 07/15/2020 8:08 PM Workstation Name: [id number] CT CERVICAL SPINE WITHOUT CONTRAST INDICATION / CLINICAL INFORMATION: closed head injury, sz. TECHNIQUE: Axial CT images were obtained through the cervical spine. Sagittal and coronal reformatted images were produced. All CT scans at this location are performed using CT dose reduction for ALARA by means of automated exposure control. COMPARISON: Cervical spine series 01/31/2020 FI NDINGS: ALIGNMENT: Patient is status post Berger sukhjinder treatment of thoracic scoliosis. There is a cervical dextroscoliosis. Mild spondylolisthesis is present at the C3-4 level. No indication of traumatic subluxation is observed. VERTEBRAE: There is no indication of fracture or bone destruction. 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 Similar findings are seen at the inferior articular facet of C3. This results in deficiency of the facet joint at the C3-4 level. 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 Correlation with lateral views of the cervical spine obtained in maximum voluntary flexion and extension are suggested when the patient's condition permits. Similar findings were seen on cervical spine series 01/31/2020. DISC SPACES: No significant abnormality. DEGENERATIVE CHANGES: Advanced degenerative changes are seen at the atlantoaxial junction between the anterior arch of C1 and odontoid process and between the lateral masses of C1 and C2, left worse than right. CRANIOCERVICAL JUNCTION:Basilar invagination is noted with the odontoid process ascending about the level of the inferior margin of the clivus. Similar findings were seen on cervical spine series 01/31/2020. SPINAL CANAL: Central spinal canal is adequately maintained throughout. PARASPINAL SOFT TISSUES: No significant abnormality. LUNG APICES: No significant abnormality of visualized lungs. IMPRESSION: 1. No indication of cervical fracture. 2. 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 The patient's condition permits further evaluation with maximum voluntary flexion and extension cervical spine series is suggested. 3. Mild basilar invagination. 4. Advanced degenerative changes at the atlantoaxial junction Signer Name: Osei Obrien MD Signed: 07/15/2020 8:21 PM Workstation Name: [id number] CT MAXILLOFACIAL WITHOUT CONTRAST INDICATION / CLINICAL INFORMATION: closed head injury, sz. TECHNIQUE: All CT scans at this location are performed using CT dose reduction for ALARA by means of automated exposure control. COMPARISON: None available. FINDINGS: FACIAL BONES: No facial bone fracture. TEMPORAL BONES: there is longitudinal fracture through the right temporal bone associated with opacification of multiple mastoid air cells and of the middle ear cavity likely related presenting hemotympanum. The fracture extends up to involve the posterior margin of the temporal squamosa and beyond into the posterior aspect of the right parietal bone. HAND PLATE STACKER SPACES:Evaluation of the director of training space structures reveal no abnormalities. SALIVARY GLANDS: PARANASAL SINUSES: A large air-fluid level is present in the right sphenoid sinus. This may be related to trauma but I do not identified definite fracture through the sphenoid bone. NASAL CAVITY: Leftward deviation the nasal septum is noted. Right-sided will bullosa is present. ORBITS: Globes, optic nerves and extraocular muscles have an unremarkable appearance. IMPRESSION: 1. Longitudinal right temporal bone fracture with extension into the temporal squamosa and parietal bone. This is associated with hemorrhage into the mastoid air cells and middle ear cavity. CRITICAL RESULT: Time of Discovery (FISHING TOOL TECHNICIAN OIL WELL/CDT): 1947 Time of Communication (FISHING TOOL TECHNICIAN OIL WELL/CDT): 1952 Licensed Practitioner Receiving Report: Dr. Ruth of the [facility] emergency department. Read-Back Performed: Not applicable. Signer Name: Donald Obrien MD Signed: 07/15/2020 8:29 PM Workstation Name: [id number] - Medical Decision Making Differential diagnosis, including but not limited to: Intracranial injury, cervical spine injury, facial injury, alcohol withdrawal seizure, transaminitis, electrolyte derangement, metabolic acidosis Assessment and plan: 35-year-old gentleman, presenting with possible seizure, who has a GCS of 14 at this time. He is awake, slightly confused, and protecting his airway. I suspect alcohol withdrawal seizure. Laboratory studies are suggestive of this. Initial ciwa score 2 We will replete patient's potassium and magnesium. He will be made n.p.o., and he will be given tetanus vaccination. He will be loaded with Keppra. He will be given lactated Ringer's solution. CAT scan of the brain shows multi ple abnormalities, including right-sided subdural bleed near the temporal region, right-sided temporal bone fracture, extra-axial bleeding near the left frontal lobe, minimal sulcal effects, no mass-effect, and hemorrhagic contusion, in the left lateral temporal lobe. This patient has multiple emergent traumatic conditions at this time which cannot be definitively managed at this hospital, as we are not a dedicated trauma center, I do not have trauma services available for consultation. Patient informed of findings, and need for emergent transfer to a trauma center. Contacted [facility], and discussed the case with their trauma surgeon, Dr. Vera Saldaña We discussed the patient's history, physical, laboratory studies and imaging studies. Patient is accepted to their service as an ER to ER transfer. She advises D5 lactated Ringer's, D5 normal saline, or lactated Ringer's At the moment, patient awake, protecting airway, moving 4 extremities, with no active signs at this time of impending airway collapse, and is suitable for transportation to trauma center for definitive management. I have also discussed this with his nurses, and informed him of the need to obtain emergency transportation to the trauma center, either ambulance lights and sirens, or air lifting. Charge nurse Ronak Kemp is currently working on obtaining expedited transportation at this time. Critical Care Time: Yes Critical care time in (mins) excluding proc time.: 65 Critical care attestation.: If time is entered above; I have spent that time in minutes in the direct care of this critically ill patient, excluding procedure time. ED Disposition Clinical Impression: History of seizure, Subdural bleeding, Transaminitis, Hypomagnesemia, Hypokalemia, Subarachnoid bleed Closed head injury Qualifiers: Encounter type: initial encounter Qualified Code(s): S09.90XA - Unspecified injury of head, initial encounter Cerebral contusion Qualifiers: Encounter type: initial encounter Laterality: unspecified laterality Fracture of temporal bone Qualifiers: Encounter type: initial encounter [id number] IP Is pt being admited?: No Does the pt Need Aspirin: No Condition: Critical Referrals: PRIMARY CARE, [Primary Care Provider] - 3-5 Days
[2020-07-15] MEDS ORDERED: D5W/0.45% NACL 1,000 ML IV SCH (20:00)
--- NOTE | 2020-07-15 20:17 | XRay Report ---
CHEST 1 VIEW 07/15/2020 7:07 PM INDICATION / CLINICAL INFORMATION: sz, convulsion. COMPARISON: 09/19/2010 FINDINGS: SUPPORT DEVICES: None. HEART / MEDIASTINUM: No significant abnormality. LUNGS / PLEURA: No significant pulmonary or pleural abnormality. No pneumothorax. ADDITIONAL FINDINGS: Spinal fusion hardware IMPRESSION: 1. No acute findings. Signer Name: Anjum Evans MD Signed: 07/15/2020 8:13 PM Workstation Name: [id number]
[2020-07-15 20:20] LABS: Hematocrit 43.5 % (35.5-45.6); Hemoglobin 14.7 gm/dl (11.8-15.2)
[2020-07-15 20:31] LABS: INR 1.14 (0.87-1.13)
[2020-07-15 20:40] LABS: Alanine Aminotransferase 448 units/L (7-56); Albumin 4.8 g/dL (3.9-5); BUN/Creatinine Ratio 13; Blood Urea Nitrogen 10 mg/dL (9-20); Calcium 9.7 mg/dL (8.4-10.2); Hemolysis Index 30
[2020-07-15] MEDS ORDERED: MAGNESIUM OXIDE 400 MG TAB PO STA (20:44)
[2020-07-15] MEDS ORDERED: POTASSIUM CHLORIDE ER 20 MEQ TAB PO ONE (20:44)
[2020-07-15] MEDS ORDERED: MAGNESIUM SULFATE 2 GM/50 ML BAG IV ONE (20:44)
[2020-07-15] MEDS ORDERED: LACTATED RINGERS 2,000 ML IV ONE (20:44)
[2020-07-15] MEDS ORDERED: levETIRAcetam 1000 MG/NS 0.75% 1,000 MG/100 ML BAG IV ONE ×2 (20:52)
[2020-07-15] MEDS ORDERED: POTASSIUM CHLORIDE 10 MEQ 10 MEQ/100 ML BAG IV SCH (21:00)
[2020-07-15] MEDS ORDERED: LACTATED RINGERS 1,000 ML IV ONE (21:09)
--- NOTE | 2020-07-15 21:13 | Cat Scan Report ---
CT HEAD WITHOUT CONTRAST INDICATION / CLINICAL INFORMATION: closed head injury, seizure. TECHNIQUE: All CT scans at this location are performed using CT dose reduction for ALARA by means of automated e xposure control. COMPARISON: None available. FINDINGS: HEMORRHAGE: Several extra-axial hematomas are identified. These are present along the inner table of the right temporal squamosa, along the inner table of the frontal bone to the left of the midline and along the left side of the falx. The falcine and left frontal extra-axial hematomas or subdural in l ocation. Because of the presence of a fracture involving the right temporal bone cannot exclude possi bility that the right temporal extra-axial collection is epidural in location. Close imaging follow-u p is advised. Additionally noted is evidence of subarachnoid blood in sulci of the inferior aspect of the left frontal lobe and lateral convexity of the right temporal lobe. There is evidence of a small hemorrhagic contusion along the lateral aspect of the left temporal lobe. VENTRICULAR SYSTEM: The third and lateral ventricles are of normal size and configuration. CEREBRAL PARENCHYMA: No areas of abnormal brain parenchymal attenuation are identified. There is no i ndication of recent infarction. MIDLINE SHIFT OR HERNIATION: There is no indication of midline shift. No evidence of transfalcine or uncal herniation is observed. CEREBELLUM / BRAINSTEM: Brainstem and cerebellum have an unremarkable appearance. MIDLINE STRUCTURES:No abnormalities of the pituitary gland or pineal region are identified. INTRACRANIAL VESSELS:No abnormalities are identified on this noncontrast head CT. ORBITS: visualized portions of the orbits have an unremarkable appearance. SOFT TISSUES of HEAD: No significant abnormality. CALVARIUM: There is a longitudinal fracture through the right temporal bone associated with opacifica tion of multiple right-sided mastoid air cells and the right middle ear cavity. PARANASAL SINUSES / MASTOID AIR CELLS: An air-fluid level is present within the right sphenoid sinus. This could be related to trauma but I do not identified definite fracture through the sphenoid bone. IMPRESSION: 1. Right temporal extra-axial hematoma, subdural versus epidural. 9 mm in maximum thickness. 2. Left frontal subdural hematoma. 7 mm in maximum thickness. 3. Left parafalcine subdural hematoma. 4 mm maximum thickness. 4. Traumatic subarachnoid hemorrhage as described above. 5. Findings suggest hemorrhagic contusion left temporal lobe 6. Longitudinal fracture right temporal bone. CRITICAL RESULT: Time of Discovery (LUMBER ESTIMATOR/CDT): 1947 Time of Communication (LUMBER ESTIMATOR/CDT): 1954 Licensed Practitioner Receiving Report: Dr. Ruth Read-Back Performed: Not applicable. Signer Name: Donald Obrien MD Signed: 07/15/2020 9:08 PM Workstation Name: [id number]
--- NOTE | 2020-07-15 21:25 | Cat Scan Report ---
CT CERVICAL SPINE WITHOUT CONTRAST INDICATION / CLINICAL INFORMATION: closed head injury, sz. TECHNIQUE: Axial CT images were obtained through the cervical spine. Sagittal and coronal reformatted images wer e produced. All CT scans at this location are performed using CT dose reduction for ALARA by means of automated exposure control. COMPARISON: Cervical spine series 01/31/2020 FINDINGS: ALIGNMENT: Patient is status post Berger sukhjinder treatment of thoracic scoliosis. There is a cervical dextroscoliosis. Mild spondylolisthesis is present at the C3-4 level. No indication of traumatic sub luxation is observed. VERTEBRAE: There is no indication of fracture or bone destruction. 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 Similar findings are seen at the inferior articular face t of C3. This results in deficiency of the facet joint at the C3-4 level. 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 Correlation with lateral views of the cervical spine obtained in maximum voluntary flexion and extension are sug gested when the patient's condition permits. Similar findings were seen on cervical spine series 01/09. DISC SPACES: No significant abnormality. DEGENERATIVE CHANGES: Advanced degenerative changes are seen at the atlantoaxial junction between the anterior arch of C1 and odontoid process and between the lateral masses of C1 and C2, left worse adarsh n right. CRANIOCERVICAL JUNCTION:Basilar invagination is noted with the odontoid process ascending about the l evel of the inferior margin of the clivus. Similar findings were seen on cervical spine series 2019. SPINAL CANAL: Central spinal canal is adequately maintained throughout. PARASPINAL SOFT TISSUES: No significant abnormality. LUNG APICES: No significant abnormality of visualized lungs. IMPRESSION: 1. No indication of cervical fracture. 2. 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 The patient's condition permits further evaluation with maximum voluntary flexion and extension c ervical spine series is suggested. 3. Mild basilar invagination. 4. Advanced degenerative changes at the atlantoaxial junction Signer Name: Donald Obrien MD Signed: 07/15/2020 9:21 PM Workstation Name: [id number]
--- NOTE | 2020-07-15 21:34 | Cat Scan Report ---
CT MAXILLOFACIAL WITHOUT CONTRAST INDICATION / CLINICAL INFORMATION: closed head injury, sz. TECHNIQUE: All CT scans at this location are performed using CT dose reduction for ALARA by means of automated e xposure control. COMPARISON: None available. FINDINGS: FACIAL BONES: No facial bone fracture. TEMPORAL BONES: there is longitudinal fracture through the right temporal bone associated with opacif ication of multiple mastoid air cells and of the middle ear cavity likely related presenting hemotymp adam. The fracture extends up to involve the posterior margin of the temporal squamosa and beyond int o the posterior aspect of the right parietal bone. PROMOTIONS OFFICER SPACES:Evaluation of the tobacco drying machine operator space structures reveal no abnormalities. SALIVARY GLANDS: PARANASAL SINUSES: A large air-fluid level is present in the right sphenoid sinus. This may be relate d to trauma but I do not identified definite fracture through the sphenoid bone. NASAL CAVITY: Leftward deviation the nasal septum is noted. Right-sided will bullosa is present. ORBITS: Globes, optic nerves and extraocular muscles have an unremarkable appearance. IMPRESSION: 1. Longitudinal right temporal bone fracture with extension into the temporal squamosa and parietal bone. This is associated with hemorrhage into the mastoid air cells and middle ear cavity. CRITICAL RESULT: Time of Discovery (SUSPECT ARTIST SUPERVISOR/CDT): 1950 Time of Communication (SUSPECT ARTIST SUPERVISOR/CDT): 1954 Licensed Practitioner Receiving Report: Dr. Ruth of the [facility] emergency department. Read-Back Performed: Not applicable. Signer Name: Donald Obrien MD Signed: 07/15/2020 9:29 PM Workstation Name: [id number]
[2020-07-15] MEDS ORDERED: ONDANSETRON 4 MG/2 ML INJ ONE (21:37)
[2020-07-15] MEDS ORDERED: ONDANSETRON 4 MG/2 ML INJ IV ONE (21:43)
[2020-07-15 22:15] VITALS: BP 128/100
--- NOTE | 2020-07-17 11:22 | Electrocardiograph Report ---
[facility] Test Date: 2020-07-15 Test Time: 21:17:35 Pat Name: LAKSHMI GALLARDO Department: Room: Gender: M Facilities Maintenance Supervisor: RHETT : 1985 Requested By: KAVYA CAO Order Number: [id number] Reading MD: Enrique Ruby Measurements Intervals [place] Rate: 102 P: 62 MD: 177 QRS: 76 QRSD: 102 T: -72 QT: 341 QTc: 445 Interpretive Statements Sinus tachycardia Probable left atrial enlargement Abnormal T, consider ischemia, diffuse leads ST elevation, consider inferior injury No previous ECG available for comparison Electronically Signed On 07-17-2020 11:22:10 EDT by Enrique Ruby
== END 2020-07-15 21:50 | disposition short-term general hospital (02) ==
LOC: ED 19:39
DX: S02.19XA Other fracture of base of skull, initial encounter for closed fracture (principal); S06.339A Contusion and laceration of cerebrum, unspecified, with loss of consciousness of unspecified duration, initial encounter; E87.6 Hypokalemia; E83.42 Hypomagnesemia; R74.01 Elevation of levels of liver transaminase levels; G89.29 Other chronic pain; J45.909 Unspecified asthma, uncomplicated; F17.200 Nicotine dependence, unspecified, uncomplicated; Z87.898 Personal history of other specified conditions; Z79.899 Other long term (current) drug therapy; X58.XXXA Exposure to other specified factors, initial encounter; Y93.89 Activity, other specified; Y92.89 Other specified places as the place of occurrence of the external cause; Y99.8 Other external cause status
CPT/HCPCS: 36415; 70450; 70486; 71045; 72125; 80053; 82550; 83735; 84100; 84443; 84484; 85014; 85018; 85049; 85610; 90471; 90715; 93005; 96365; 96375; 96376; 99285; J1953; J2405; J3475; J3480; J7120; 80320; G0480